=== PATIENT | female | born 1960 | race Caucasian/White ===

== ENCOUNTER 2023-08-18 07:39 | Day surgery (SDC) | payer MEDICARE, MEDICAID ==
[~2023-08-18] VITALS: Ht 170.2 cm; Wt 71.7 kg
[~2023-08-18 07:39] MED LIST: ASPI81CH59 PO; CARV3.1240 PO; CELE200C PO; DULO60CA41 PO; ESTR1TAB6 PO; GABA-1254 PO; HYDR4TAB90 PO; LEVO125T PO; LISI2.5T47 PO; MORP30TA PO; OMEP20TA PO; POLY335015 PO; ZOLP10TA PO
[2023-08-18] MEDS ORDERED: ceFAZolin 2 GM/D5W50ml 50 ML IV ONE (07:46)
[2023-08-18] MEDS ORDERED: KETOROLAC TROMETH 30 MG/ML 1ML VIAL IV ONE (08:00)
[2023-08-18] MEDS ORDERED: MORPHINE SULFATE INJ 2 MG/ml SYRG IV PRN (08:00)
[2023-08-18] MEDS ORDERED: HYDROmorphone HCL 2 MG/ML VL/or syr IV PRN ×2 (08:00)
[2023-08-18] MEDS ORDERED: METOCLOPRAMIDE HCL 5MG/ml INJ 2ml VIAL IV ONE (08:00)
[2023-08-18] MEDS ORDERED: DexAMETHasone SOD PHOS 10MG/1ML VIAL INJ ONE (08:16)
[2023-08-18] MEDS ORDERED: MIDAZOLAM HCL 2MG/2ML 2ml VIAL (1mg/ml) ONE ×2 (08:16→08:38)
[2023-08-18] MEDS ORDERED: fentaNYL CITRATE 100 MCG/2 ML VL ONE (08:16)
[2023-08-18] MEDS ORDERED: SODIUM CHLORIDE LOCK 10 ML ONE (08:16)
[2023-08-18] MEDS ORDERED: KETAMINE 50mg/ML 1ml syringe ONE (08:17)
[2023-08-18] MEDS ORDERED: ONDANSETRON HCL 4 MG/2 ML VIAL ONE (08:17)
[2023-08-18] MEDS ORDERED: PROPOFOL 10 MG/ML 20 ML IV ONE (08:17)
[2023-08-18] MEDS: LIDOCAINE 1% HCL (LOCAL ANESTH.) INJ 20ML MDV ONE (08:40)
[2023-08-18] MEDS: BUPIVACAINE HCL 0.25% P/F 10 ML VIAL ONE (08:40)
[2023-08-18 08:48] VITALS: PULSE 58; RESP 13; O2SAT 97
[2023-08-18 10:03] VITALS: BP 118/72; PULSE 62; RESP 12; O2SAT 95
== END 2023-08-18 09:45 | disposition home or self-care (01) ==
LOC: SUR 07:39
PROVIDERS: ATTEND Orthopaedic Surgery Adult Reconstructive Orthopaedic Surgery
DX: G56.01 Carpal tunnel syndrome, right upper limb (principal); I11.0 Hypertensive heart disease with heart failure; E03.9 Hypothyroidism, unspecified; I50.9 Heart failure, unspecified; K21.9 Gastro-esophageal reflux disease without esophagitis; G62.9 Polyneuropathy, unspecified; F17.210 Nicotine dependence, cigarettes, uncomplicated; F32.A Depression, unspecified; M06.9 Rheumatoid arthritis, unspecified; I25.2 Old myocardial infarction; Z98.890 Other specified postprocedural states; Z90.710 Acquired absence of both cervix and uterus; Z88.6 Allergy status to analgesic agent; Z91.09 Other allergy status, other than to drugs and biological substances; Z79.82 Long term (current) use of aspirin; Z79.899 Other long term (current) drug therapy; Z79.890 Hormone replacement therapy
CPT/HCPCS: 64721; J0690; J1100; J2001; J2250; J2405; J2704; J3010; J3490

== ENCOUNTER 2024-07-16 12:23 | Emergency (ER) | payer MEDICARE, MEDICAID ==
[~2024-07-16] VITALS: Ht 172.7 cm; Wt 66.0 kg
[2024-07-16 12:57] VITALS: BP 144/82; PULSE 82; RESP 16; TEMP 98; O2SAT 100
[2024-07-16 13:12] LABS: Basophils # (auto) 0 10 ^3/uL (0-0.2); Basophils % (auto) 0.3 % (0.0-2.0); Eosinophils # (auto) 0.3 10 ^3/uL (0-0.8); Eosinophils % (auto) 5.1 % (0.0-7.0); Hematocrit 39.4 % (36.0-46.0); Hemoglobin 13.1 g/dL (12.2-16.2); Lymphocytes # (auto) 1.7 10 ^3/uL (0.4-5.4); Lymphocytes % (auto) 25.6 % (10.0-50.0); Mean Corpuscular Hemoglobin 29.5 pg (28.0-32.0); Mean Corpuscular Hgb Conc. 33.3 g/dL (32.0-36.0); Mean Corpuscular Volume 88.6 fL (80.0-100.0); Monocytes # (auto) 0.5 10 ^3/uL (0-1.3); Monocytes % (auto) 7.9 % (0.0-12.0); Neutrophils % (auto) 61.1 % (37.0-80.0); Platelet Count (auto) 232 10^3/uL (140-450); Red Blood Cells 4.45 10^6/uL (4.0-5.20); Red Cell Distribution Width 13.9 % (11.8-14.3); White Blood Cell 6.6 10^3/uL (4.4-10.8)
--- NOTE | 2024-07-16 13:24 | DVH ---
EXAM: XY CHEST PORTABLE HISTORY: edema COMPARISON: None TECHNIQUE: Portable upright AP view of the chest was performed. FINDINGS: No pneumothorax, consolidative infiltrates, or pulmonary edema. The heart is not enlarged. There are postoperative changes of ACDF. There is mild thoracic levoscoliosis. IMPRESSION: No acute intrathoracic process.
[2024-07-16 13:28] LABS: Alanine Aminotransferase 15 U/L (7-40); Albumin 3.9 g/dL (3.2-4.8); Alkaline Phosphatase 82 U/L (46-116); Anion Gap 5 (5-15); Aspartate Aminotransferase 15 U/L (13-40); BUN/Creatinine Ratio 17.9 (10.0-20.0); Bilirubin, Total 0.5 mg/dL (0.2-1.0); Blood Urea Nitrogen 12 mg/dL (9-23); Calcium 9.3 mg/dL (8.7-10.4); Carbon Dioxide 30 mmol/L (20-31); Chloride 102 mmol/L (98-107); Glucose 101 mg/dL (74-106); Potassium 4.4 mmol/L (3.5-5.1); Sodium 137 mmol/L (136-145); Total Protein 5.9 g/dL (5.7-8.2)
--- NOTE | 2024-07-16 14:40 | DVH ---
BILATERAL LOWER EXTREMITY VENOUS DOPPLER CLINICAL HISTORY: edema Technique: Duplex Doppler evaluation of the deep venous systems of both lower extremities from the co mmon femoral veins to the popliteal veins including color Doppler and spectral/pulsed waveform analys is was performed. COMPARISON: None FINDINGS: The right and left common femoral, superficial femoral, popliteal, posterior tibial veins and trifur cations appear patent with normal augmentation, phasicity, compressibility and color-flow. IMPRESSION: 1. There is no sonographic evidence for DVT in the lower extremities. HS:Y
--- NOTE | 2024-07-16 15:47 | ED.PDOC ---
Musculoskeletal HPI Comments 64Y F with PMHx CAD and CHF presents to ED via EMS for chief complaint bilateral foot/ankle swelling. Pt states rt foot/ankle swelling began this morning and lt foot/ankle swelling began 4 days ago. Additional symptoms include dry cough and SOB. Pt denies chest pain. Per pt, MRI of lower extremities was recently done a nd showed venous abnormalities. Pt also stated current EF is 65% from last echo and she is currently taking Coreg, Lisinopril, ASA 81mg, and 5 pain medications. No other symptoms reported. Chief Complaint: Extremity Swelling Time Seen by MD: 14:40 Primary Care Provider: UNKNOWN Reviewed Notes: Nurses Notes, Strategy Associate Notes, Medications, Allergies Allergies: Coded Allergies: Morphine (Verified Adverse Reaction, Severe, BECOMES COMBATITIVE (IV morphine oral ok), 08/12/23) Home Meds Reported Medications Polyethylene Glycol 3350 (Miralax) 17 Gm Pow, 17 GM PO DAILY, POW 08/12/23 Omeprazole (Gnp Omeprazole) 20 Mg Tab, 20 MG PO PRN, TAB 08/12/23 Aspirin (Aspirin Low Dose) 81 Mg Chw, 81 MG PO DAILY, TAB.CHEW 08/12/23 Carvedilol (Carvedilol) 3.125 Mg Tab, 3.125 MG PO BID, TAB 08/12/23 Lisinopril (Lisinopril) 2.5 Mg Tab, 5 MG PO DAILY, TAB 08/12/23 Celecoxib (Celebrex) 200 Mg Cap, 200 MG PO DAILY, CAP 08/12/23 Gabapentin (NEURONTIN CAPSULE) 300 Mg Cp, 300 MG PO TID, CAP 08/12/23 Zolpidem Tartrate (Ambien) 10 Mg Tab, 10 MG PO HS, TAB 08/12/23 Estradiol (Estradiol) 1 Mg Tab, 0.5 TAB PO DAILY, TAB 08/12/23 Duloxetine Hcl (Cymbalta) 60 Mg Cap, 120 MG PO DAILY, CAP 08/12/23 Hydromorphone Hcl (Dilaudid) 4 Mg Tab, 4 MG PO BID, TAB 08/12/23 Morphine Sulfate (Morphine Sulfate) 30 Mg Tab, 30 MG PO TID, TAB 08/12/23 Levothyroxine Sodium (Synthroid) 125 Mcg Tab, 125 MCG PO DAILY, TAB 08/12/23 Information Source: Patient, Emergency Med Personnel Mode of Arrival: EMS Brought in by: EMS Location: Bilateral Extremity Location: Ankle, Foot Timing: Days Prehospital treatment: None Severity: Mild Able to Move Extremity: Yes Bear Weight: Limited Pain: None Onset of Symptoms: Spontaneous Symptoms: Swelling DVT Risk Factors: CHF Associated signs and symptoms: Other Past Medical History PAST MEDICAL HISTORY: CAD, CHF Past Medical History (Other): Arthritis, fibromyalgia, peripheral vascular disease Surgical History: Denies all surgeries MANAGER TALENT ACQUISITION History: Denies all MANAGER TALENT ACQUISITION Hx Family History Family History: Unknown Social History Smoker: Quit Greater Than 1 Year Alcohol: Denies ETOH Use Drugs: Denies Drug Use Lives In: Home Constitutional: denies: chills, diaphoresis, fatigue, fever, malaise, sweats, weakness, others EENTM: denies: blurred vision, double vision, ear bleeding, ear discharge, ear drainage, ear pain, ear ringing, eye pain, eye redness, hearing loss, mouth pain, mouth swelling, nasal discharge, nose bleeding, nose congestion, nose pain, photophobia, tearing, throat pain, throat swelling, voice changes, others Respiratory: reports: cough, shortness of breath; denies: hemoptysis, orthopnea, SOB at rest, SOB with excertion, stridor, wheezing, others Cardiovascular: reports: edema (bilateral feet/ankles); denies: chest pain, dizzy spells, diaphoresis, Dyspnea on exertion, irregular heart beat, left arm pain, lightheadedness, palpitations, PND, syncope, others Gastrointestinal: denies: abdomen distended, abdominal pain, blood streaked bowels, constipated, diarrhea, dysphagia, difficulty swallowing, hematemesis, melena, nausea, poor appetite, poor fluid intake, rectal bleeding, rectal pain, vomiting, others Genitourinary: denies: abnormal vagina bleeding, burning, dyspareunia, dysuria, flank pain, frequency, hematuria, incontinence, pain, , vagina discharge, urgency, others Neurological: denies: dizziness, fainting, headache, left sided numbness, left sided weakness, numbness, paresthesia, pre-existing deficit, right sided numbness, right sided weakness, seizure, speech problems, tingling, tremors, weakness, others Musculoskeletal: denies: back pain, gout, joint pain, joint swelling, muscle pain, muscle stiffness, neck pain, others Integumetry: denies: bruises, change in color, change in hair/nails, dryness, laceration, lesions, lumps, rash, wounds, others Allergic/Immunocompromised: denies: Difficulty Healing, Frequent Infections, Hives, Itching, others Hematologic/Lymphatic: denies: anemia, blood clots, easy bleeding, easy bruising, swollen glands, others Endocrine: denies: excessive hunger, excessive sweating, excessive thirst, excessive urination, flushing, intolerance to cold, intolerance to heat, unexplained weight gain, unexplained weight loss, others Psychiatric: denies: anxiety, bipolar disorder, depression, hopeless, panic disorder, schizophrenia, sleepless, suicidal, others All Other Systems: Reviewed and Negative Physical Exam General Appearance: No Apparent Distress HEENT: PERRL/EOMI Neck: Full Range of Motion, Normal Inspection Respiratory: Lungs Clear, No Accessory Muscle Use, No Respiratory Distress, Normal Breath Sounds Cardiovascular: No JVD, Regular Rate/Rhythm Breast Exam: Deferred Gastrointestinal: Non Tender, Soft Genitalia: Deferred Pelvic: Deferred Rectal: Deferred Extremities: Normal range of motion, Non-tender, Pedal edema (1+) Neurologic: Alert (Oriented x4), Normal Affect, Normal Mood, Other (Moves all extremities. No gross focal deficit.) Cerebellar Function: NOT DONE Reflexes: NOT DONE Skin: Dry, Normal Color, Warm Lymphatic: NOT DONE Was a procedure done? Was a procedure done?: No EKG EKG : Comments Sinus rhythm, rate 61, normal intervals, borderline right axis deviation, normal QRS, nonspecific T change. Differential Diagnosis EXT Differential Diagnosis: Cellulitis, CHF, Deep Vein Thrombosis, DJD, Arthritis, Bursitis X-Ray, Labs, Meds, VS Vital Signs Date Time Temp Pulse Resp B/P (MAP) Pulse Ox O2 Delivery O2 Flow Rate FiO2 07/16/24 12:57 98.0 82 16 144/82 (102) 100 98.0 07/16/24 12:37 61 Lab Test 07/16/24 13:48 07/16/24 12:56 Range/Units Troponin I High Sensitivity < 3 L < 3 L </=34 ng/L White Blood Count 6.6 4.4-10.8 10^3/uL Red Blood Count 4.45 4.0-5.20 10^6/uL Hemoglobin 13.1 12.2-16.2 g/dL Hematocrit 39.4 36.0-46.0 % Mean Corpuscular Volume 88.6 80.0-100.0 fL Mean Corpuscular Hemoglobin 29.5 28.0-32.0 pg Mean Corpuscular Hemoglobin Concent 33.3 32.0-36.0 g/dL Red Cell Distribution Width 13.9 11.8-14.3 % Platelet Count 232 140-450 10^3/uL Mean Platelet Volume 8.1 6.9-10.8 fL Neutrophils (%) (Auto) 61.1 37.0-80.0 % Lymphocytes (%) (Auto) 25.6 10.0-50.0 % Monocytes (%) (Auto) 7.9 0.0-12.0 % Eosinophils (%) (Auto) 5.1 0.0-7.0 % Basophils (%) (Auto) 0.3 0.0-2.0 % Neutrophils # (Auto) 4.0 1.6-8.6 10 ^3/uL Lymphocytes # (Auto) 1.7 0.4-5.4 10 ^3/uL Monocytes # (Auto) 0.5 0-1.3 10 ^3/uL Eosinophils # (Auto) 0.3 0-0.8 10 ^3/uL Basophils # (Auto) 0 0-0.2 10 ^3/uL Nucleated Red Blood Cells 0.0 % Sodium Level 137 136-145 mmol/L Potassium Level 4.4 3.5-5.1 mmol/L Chloride Level 102 98-107 mmol/L Carbon Dioxide Level 30 20-31 mmol/L Anion Gap 5 5-15 Blood Urea Nitrogen 12 9-23 mg/dL Creatinine 0.67 0.550-1.02 mg/dL Glomerular Filtration Rate Calc 97 >90 mL/min BUN/Creatinine Ratio 17.9 10.0-20.0 Serum Glucose 101 74-106 mg/dL Calcium Level 9.3 8.7-10.4 mg/dL Total Bilirubin 0.5 0.2-1.0 mg/dL Aspartate Amino Transferase (AST) 15 13-40 U/L Alanine Aminotransferase (ALT) 15 7-40 U/L Alkaline Phosphatase 82 46-116 U/L B-Type Natriuretic Peptide 64.70 0-100 pg/mL Total Protein 5.9 5.7-8.2 g/dL Albumin 3.9 3.2-4.8 g/dL ORDERING PHYSICIAN: CAMILLE CAIN MD PROCEDURE(s): CXRP - CHEST PORTABLE REASON: edema ORDER NUMBER(s): [id number], ACCESSION NUMBER(s): [id number] EXAM: XY CHEST PORTABLE HISTORY: edema COMPARISON: None TECHNIQUE: Portable upright AP view of the chest was performed. FINDINGS: No pneumothorax, consolidative infiltrates, or pulmonary edema. The heart is not enlarged. There are postoperative changes of ACDF. There is mild thoracic levoscoliosis. IMPRESSION: No acute intrathoracic process. RING PHYSICIAN: CAMILLE CAIN MD PROCEDURE(s): BLDVT - BiLat Lower DVT REASON: edema ORDER NUMBER(s): [id number], ACCESSION NUMBER(s): [id number] BILATERAL LOWER EXTREMITY VENOUS DOPPLER CLINICAL HISTORY: edema Technique: Duplex Doppler evaluation of the deep venous systems of both lower extremities from the common femoral veins to the popliteal veins including color Doppler and spectral/pulsed waveform analysis was performed. COMPARISON: None FINDINGS: The right and left common femoral, superficial femoral, popliteal, posterior tibial veins and trifurcations appear patent with normal augmentation, phasicity, compressibility and color-flow. IMPRESSION: 1. There is no sonographic evidence for DVT in the lower extremities. HS:Y X-Ray, Labs, Meds, VS Comment 64-year-old female with a history of CHF, CAD, arthritis, peripheral venous disease complaining of bilateral foot and ankle edema Vitals remarkable for heart rate 61 Exam remarkable for 1+ pedal edema up to the ankles Rhythm strip independently interpreted by me: Sinus rhythm, rate 61, no ectopy. Chest x-ray unremarkable Bilateral lower extremity ultrasound negative for DVT CBC, metabolic panel BNP and 2 serial troponins unremarkable for any abnormality of acute significance Patient declined any pain medications in the ED. patient was called for re- evaluation, however did not answer multiple times. It was assumed patient eloped. Time of 1ST Reevaluation: 15:10 Reevaluation 1ST: Unchanged Patient Education/Counseling: Diagnosis, Treatment Family Education/Counseling: No Family Present Departure 1 Departure Time of Disposition: 15:27 Impression: Primary Impression: Pedal edema Disposition: 07 LEFT AWOL/ELOPED Condition: Fair Critical Care Note Critical Care Time?: No Stability Stability form required: No Heart Score Heart Score: Heart Score Response (Comments) Value History N/A 0 EKG N/A 0 Age N/A 0 Risk Factors N/A 0 Troponin N/A 0 Total 0 I personally scribed for CAMILLE CAIN MD ([facility] on 07/16/24 at 15:47. Electronically submitted by Livier Fuller ([employer]). I personally scribed for CAMILLE CAIN MD ([facility] on 07/16/24 at 15:48. Electronically submitted by Livier Fuller ([email or web address]). CAMILLE CAIN MD Jul 16, 2024 15:47
--- NOTE | 2024-07-16 19:15 | ECG ---
[facility] Test Date: 2024-07-16 Test Time: 12:32:29 Pat Name: RM NUNO Department: ED Room: Gender: F Pcas: SHAWNA : 1960 Requested By: CAMILLE HUMPHRIES Order Number: [id number] Reading MD: Camacho García Measurements Intervals [place] Rate: 61 P: 84 MS: 175 QRS: 84 QRSD: 105 T: 71 QT: 425 QTc: 428 Interpretive Statements Sinus rhythm Borderline right axis deviation Electronically Signed On 07-17-2024 19:16:41 PDT by Camacho García Please click the below link to view image of tracing.
== END 2024-07-16 15:27 | disposition left against medical advice (07) ==
LOC: EDBD 12:23 → ER 12:31
DX: R60.0 Localized edema (principal); I25.10 Atherosclerotic heart disease of native coronary artery without angina pectoris; I50.9 Heart failure, unspecified; M19.90 Unspecified osteoarthritis, unspecified site; Z87.891 Personal history of nicotine dependence; Z88.5 Allergy status to narcotic agent; Z79.1 Long term (current) use of non-steroidal anti-inflammatories (NSAID); Z79.82 Long term (current) use of aspirin; Z79.899 Other long term (current) drug therapy
CPT/HCPCS: 36415; 71045; 80053; 83880; 84484; 85025; 93005; 93970